=== PATIENT | male | born 1975 | race Caucasian/White ===

== ENCOUNTER → 2017-10-05 | Outpatient (CLI) | payer OTHER ==
[~2017-10-05] MED LIST: ADVAIR; ADVAIR INH; ALB0.5 INH; ALBU8.5H IH; BUPR-472 PO; DIA5 PO; ESOM40CA42 PO; KET10 PO; KETO-58 PO; LORA0.5T11 PO; PARO-242 PO; PRAM0.1225 PO; ST JOHNS WART; ST JOHNS WORT; [UNRECOGNIZED DRUG - CODE] PO
== END ==
LOC: LAB 15:56
PROVIDERS: ATTEND Emergency Medicine
DX: G25.81 Restless legs syndrome (principal)
CPT/HCPCS: 36415; 82607; 82746; 83540; 83550

== ENCOUNTER → 2017-10-12 | Outpatient (CLI) | payer OTHER | LOC: AUD 16:05 | PROVIDERS: ATTEND Emergency Medicine | DX: H91.90 Unspecified hearing loss, unspecified ear (principal) | CPT/HCPCS: 92557; 92570 ==

== ENCOUNTER 2018-03-21 10:41 | Emergency (ER) | payer OTHER ==
[~2018-03-21 10:41] MED LIST changes: +FLUT1DIS28 IH; +MONT10TA PO
[2018-03-21] MEDS ORDERED: [UNRECOGNIZED DRUG - CODE] PO (10:50)
[2018-03-21 11:12] LABS: PLATELET COUNT, AUTOMATED 271 K/uL (150-450)
--- NOTE | 2018-03-21 11:14 | ER Report ---
History and Physical Time Seen By MD: 10:50 Hx. of Stated Complaint: WAS PLAYING COMP GAME, FELT A WEIRD "RUN" WITH HIS HEART. HAS A SQUEAZING CHEST PRESSURE. TOOK 325 ASA AT HOME HPI/ROS CHIEF COMPLAINT: chest pain HISTORY OF PRESENT ILLNESS: Patient was sitting at a table at approximately 950 this morning when he developed symptoms of palpitations and mild central chest pressure that radiates up to both sides of his neck. Symptoms have been constant for one hour though gradually improving. He no longer has palpitations but has mild chest pressure. Patient took 325 mg aspirin without significant relief. Patient does note that when he was walking around symptoms seem to be slightly worse. Patient has never had similar symptoms in past. Patient does not normally get pain or shortness of breath with exertion. Patient woke up this morning asymptomatic. He has had no change in medications, lifestyle, diet. He has had no recent travel, has no family history of DVT or PE, no family history of ID at a young age. Patient denies dyspnea, swelling in legs, abdominal pain, nausea, vomiting or other review of systems. REVIEW OF SYSTEMS: Constitutional: No fever, no chills. Eyes: No discharge. ENT: No sore throat. Cardiovascular: above Respiratory: No cough, no shortness of breath. Gastrointestinal: No abdominal pain, no vomiting. Genitourinary: No hematuria. Musculoskeletal: No back pain. Skin: No rashes. Neurological: No headache. Remainder of the 14 system rev: Yes Allergies: Coded Allergies: latex (Verified Allergy, Intermediate, 03/21/18) Home Meds Active Scripts Montelukast Sodium (SINGULAIR) 10 Mg Tablet, 1 TAB PO QDAY, #90 TAB 3 Refills Prov:AFRICA ANTHONY MD 03/02/18 Fluticasone/Salmeterol (ADVAIR 250-50 DISKUS) 1 Each Disk.w.dev, 1 EACH IH BID, #1 INHALER 11 Refills Prov:AFRICA ANTHONY MD 03/02/18 Bupropion Hcl (WELLBUTRIN XL) 150 Mg Tab.er.24h, 150 MG PO QDAY, #90 TAB 1 Refill Prov:AFRICA ANTHONY MD 01/29/18 Albuterol Sulfate 90 Mcg/Act (PROAIR HFA 90 MCG/ACT) 8.5 Gm Hfa.aer.ad, 2 PUFF IH Q4-6H, #1 INHALER 11 Refills Prov:AFRICA ANTHONY MD 10/05/17 Paroxetine Hcl (PAXIL) 10 Mg Tablet, 1 TAB PO QAM, #90 TAB 3 Refills Prov:AFRICA ANTHONY MD 07/07/17 Pramipexole Di-Hcl (MIRAPEX) 0.125 Mg Tablet, 0.125 MG PO QHS, #90 TAB 4 Refills Prov:AFRICA ANTHONY MD 06/09/17 Reported Medications Arginine Hcl (L-ARGININE) 1,000 Mg Tablet, 1000 MG PO 03/21/18 Discontinued Scripts Esomeprazole Magnesium (NEXIUM) 40 Mg Capsule.dr, 1 CAP PO QDAY, #90 CAP 4 Refills Prov:AFRICA ANTHONY MD 06/02/17 Reviewed Nurses Notes: Yes Hx Smoking: No Smoking Status: Never Smoker Hx Substance Use Disorder: No Hx Alcohol Use: Yes Constitutional Vital Sign - Last 24 Hours 03/21/18 03/21/18 03/21/18 03/21/18 10:41 10:44 10:45 10:56 Temp 97.7 Pulse ??? 84 96 Resp 14 14 B/P (MAP) 120/75 120/75 (90) Pulse Ox 95 95 O2 Delivery Room Air 03/21/18 03/21/18 03/21/18 03/21/18 11:00 11:11 11:16 11:30 Pulse 88 81 Resp 23 17 B/P (MAP) 117/83 (94) 121/81 (94) Pulse Ox 91 92 03/21/18 03/21/18 03/21/18 03/21/18 11:31 11:45 11:46 11:48 Pulse 84 81 Resp 11 12 B/P (MAP) 115/82 (93) Pulse Ox 90 96 O2 Flow Rate 2.0 03/21/18 03/21/18 03/21/18 03/21/18 12:00 12:01 12:15 12:16 Pulse 81 82 Resp 13 10 B/P (MAP) 114/81 (92) 121/69 (86) Pulse Ox 97 96 03/21/18 03/21/18 03/21/18 03/21/18 12:30 12:31 12:36 12:45 Pulse 80 82 Resp 0 27 B/P (MAP) 120/76 (91) 128/84 (99) Pulse Ox 94 94 03/21/18 03/21/18 03/21/18 03/21/18 12:51 13:00 13:06 13:15 Pulse 85 83 Resp 33 11 B/P (MAP) 112/79 (90) 106/75 (85) Pulse Ox 94 92 03/21/18 03/21/18 03/21/18 03/21/18 13:21 13:26 13:30 13:41 Pulse 86 82 81 Resp 26 29 21 B/P (MAP) 116/81 (93) Pulse Ox 95 93 93 03/21/18 13:45 B/P (MAP) 116/83 (94) Physical Exam General Appearance: [The patient is alert, has no immediate need for airway protection and no signs of toxicity.] [ ] Eyes: Pupils equal and round no pallor or injection. ENT, Mouth: Mucous membranes are moist. Respiratory: There are no retractions, lungs are clear to auscultation. Cardiovascular: Regular rate and rhythm. no m/r/g Gastrointestinal: Abdomen is soft and non tender, no masses, bowel sounds normal. Neurological: alert, oriented Skin: Warm and dry, no rashes. Musculoskeletal: Neck is supple non tender. Extremities are nontender, nonswollen and have full range of motion. DIFFERENTIAL DIAGNOSIS: After history and physical exam differential diagnosis was considered for chest pain including but not limited to myocardial ischemia, pericarditis pulmonary embolus, chest wall pain, pleural inflammation and pulmonary infectious causes. Medical Decision Making Data Points Result Diagram: 03/21/18 1048 03/21/18 1048 Laboratory Hematology Test 03/21/18 10:48 03/21/18 13:15 Red Blood Count 5.47 M/uL (4.00-5.60) Mean Corpuscular Volume 90.9 fL (80.0-96.0) Mean Corpuscular Hemoglobin 31.6 pg (26.0-33.0) Mean Corpuscular Hemoglobin Concent 34.7 g/dL (32.0-36.0) Red Cell Distribution Width 12.5 % (11.5-14.5) Mean Platelet Volume 9.0 fL (7.2-11.1) Neutrophils (%) (Auto) 54.0 % (39.4-72.5) Lymphocytes (%) (Auto) 31.2 % (17.6-49.6) Monocytes (%) (Auto) 11.1 % (4.1-12.4) Eosinophils (%) (Auto) 3.2 % (0.4-6.7) Basophils (%) (Auto) 0.5 % (0.3-1.4) Nucleated RBC Relative Count (auto) 0.2 /100WBC Neutrophils # (Auto) 3.1 K/uL (2.0-7.4) Lymphocytes # (Auto) 1.8 K/uL (1.3-3.6) Monocytes # (Auto) 0.6 K/uL (0.3-1.0) Eosinophils # (Auto) 0.2 K/uL (0.0-0.5) Basophils # (Auto) 0.0 K/uL (0.0-0.1) Nucleated RBC Absolute Count (auto) 0.01 K/uL D-Dimer Quantitative (PE/DVT) < 0.27 ug/ml (0-0.50) Sodium Level 141 mmol/L (137-145) Potassium Level 3.9 mmol/L (3.5-5.0) Chloride Level 103 mmol/L (98-107) Carbon Dioxide Level 25 mmol/L (22-30) Blood Urea Nitrogen 14 mg/dl (9-21) Creatinine 1.00 mg/dl (0.66-1.25) Glomerular Filtration Rate Calc > 60.0 Random Glucose 107 mg/dl (75-110) Calcium Level 8.8 mg/dl (8.4-10.2) Total Bilirubin 0.6 mg/dl (0.2-1.3) Aspartate Amino Transf (AST/SGOT) 25 U/L (0-35) Alanine Aminotransferase (ALT/SGPT) 26 U/L (0-56) Alkaline Phosphatase 79 U/L (0-126) Total Protein 7.4 g/dl (6.3-8.2) Albumin 4.3 g/dl (3.5-5.0) Lipase 88 U/L (23-300) Troponin I < 0.012 ng/ml Chemistry Test 03/21/18 10:48 03/21/18 13:15 White Blood Count 5.8 k/uL (4.5-11.0) Red Blood Count 5.47 M/uL (4.00-5.60) Hemoglobin 17.3 g/dL (14.0-18.0) Hematocrit 49.7 % (42.0-52.0) Mean Corpuscular Volume 90.9 fL (80.0-96.0) Mean Corpuscular Hemoglobin 31.6 pg (26.0-33.0) Mean Corpuscular Hemoglobin Concent 34.7 g/dL (32.0-36.0) Red Cell Distribution Width 12.5 % (11.5-14.5) Platelet Count 271 K/uL (150-450) Mean Platelet Volume 9.0 fL (7.2-11.1) Neutrophils (%) (Auto) 54.0 % (39.4-72.5) Lymphocytes (%) (Auto) 31.2 % (17.6-49.6) Monocytes (%) (Auto) 11.1 % (4.1-12.4) Eosinophils (%) (Auto) 3.2 % (0.4-6.7) Basophils (%) (Auto) 0.5 % (0.3-1.4) Nucleated RBC Relative Count (auto) 0.2 /100WBC Neutrophils # (Auto) 3.1 K/uL (2.0-7.4) Lymphocytes # (Auto) 1.8 K/uL (1.3-3.6) Monocytes # (Auto) 0.6 K/uL (0.3-1.0) Eosinophils # (Auto) 0.2 K/uL (0.0-0.5) Basophils # (Auto) 0.0 K/uL (0.0-0.1) Nucleated RBC Absolute Count (auto) 0.01 K/uL D-Dimer Quantitative (PE/DVT) < 0.27 ug/ml (0-0.50) Glomerular Filtration Rate Calc > 60.0 Calcium Level 8.8 mg/dl (8.4-10.2) Total Bilirubin 0.6 mg/dl (0.2-1.3) Aspartate Amino Transf (AST/SGOT) 25 U/L (0-35) Alanine Aminotransferase (ALT/SGPT) 26 U/L (0-56) Alkaline Phosphatase 79 U/L (0-126) Total Protein 7.4 g/dl (6.3-8.2) Albumin 4.3 g/dl (3.5-5.0) Lipase 88 U/L (23-300) Troponin I < 0.012 ng/ml Coagulation Test 03/21/18 10:48 D-Dimer Quantitative (PE/DVT) < 0.27 ug/ml EKG/Imaging EKG Interpretation 12 lead EKG: Rhythm: Normal sinus rhythm Hammond: Normal QRS: Normal ST segments: Normal Monitor Interpretation: Normal Sinus Rhythm Imaging X-ray: chest was obtained. I viewed the images myself on the PACS system. My i nterpretation of the images is: NACPD. The radiologist interpretation had no clinically significant variation from this interpretation. ED Course/Re-evaluation ED Course Patient presents with chest pressure and palpitations that improved throughout ED stay. Patient has had no prior similar symptoms. Considered emergent causes for cardiopulmonary disease. EKG 2 is normal, troponin is negative 2. Patient has heart score less than 4 and is reasonable for discharge with outpatient follow-up. Patient instructed to call his primary doctor tomorrow to schedule stress test. Patient has negative PERC score. Very low likelihood of other emergent disease. Patient comfortable on discharge and understands strict return precautions. Decision to Disposition Date: Mar 21, 2018 Decision to Disposition Time: 14:03 Depart Departure Latest Vital Signs Vital Signs Date Time Temp Pulse Resp B/P (MAP) Pulse Ox O2 Delivery O2 Flow Rate FiO2 03/21/18 13:45 116/83 (94) 03/21/18 13:41 81 21 93 03/21/18 11:48 2.0 03/21/18 10:44 97.7 Room Air Impression: Primary Impression: Chest pressure Condition: Improved Disposition: HOME OR SELF-CARE Referrals: AFRICA ANTHONY MD (PCP) 2 Days for scheduling of stress test Patient Instructions: Chest Pain (ED) MO DRAKE MD Mar 21, 2018 11:14
--- NOTE | 2018-03-21 11:25 | RADIOLOGY IMAGING REPORT ---
FACILITY: [facility] - [place] PATIENT NAME: Seth Ghosh : 1975 MR: [id number] V: [id number] EXAM DATE: ORDERING PHYSICIAN: MO DRAKE TECHNOLOGIST: Location: [facility] - [place] Patient: Seth Ghosh : 1975 Visit/Account:[id number] Date of Sevice: 03/21/2018 CHEST PA AND LAT COMPARISONS: None. ADDITIONAL PERTINENT HISTORY: Chest pain FINDINGS: Cardiomediastinal silhouette: Negative. Pulmonary vasculature: Negative. Lung dinero: Negative. Pleural spaces: Negative. Osseous structures: Minimal spondylitic change involving the thoracic spine. Surrounding soft tissues: Negative. IMPRESSION: No evidence of acute cardiopulmonary disease. Report Dictated By: Alexander Hoffman MD at 03/21/2018 11:21 AM Report E-Signed By: Alexander Hoffman MD at 03/21/2018 11:22 AM WSN:[id number]
[2018-03-21 14:00] VITALS: BP 107/72
--- NOTE | 2018-03-21 17:41 | EKG ---
FACILITY: [facility] [place] PATIENT NAME: JAS HOANG : [id number] MR: [id number] V: [id number] EXAM DATE: ORDERING PHYSICIAN: MO DRAKE TECHNOLOGIST: Test Reason : CHEST PAIN, REPEAT Blood Pressure : / mmHG Vent. Rate : 077 BPM Atrial Rate : 077 BPM P-R Int : 150 ms QRS Dur : 084 ms QT Int : 374 ms P-R-T Axes : 032 052 050 degrees QTc Int : 423 ms Normal sinus rhythm Normal ECG When compared with ECG of 21-MAR-2018 10:50, No significant change was found Confirmed by REAL BLEVINS ([id number]) on 03/21/2018 6:15:42 PM Referred By: Confirmed By:REAL BLEVINS
--- NOTE | 2018-03-21 17:47 | EKG ---
FACILITY: [facility] PATIENT NAME: JAS HOANG : [id number] MR: [id number] V: [id number] EXAM DATE: ORDERING PHYSICIAN: MO DRAKE TECHNOLOGIST: Test Reason : Blood Pressure : / mmHG Vent. Rate : 084 BPM Atrial Rate : 084 BPM P-R Int : 156 ms QRS Dur : 086 ms QT Int : 364 ms P-R-T Axes : 054 068 060 degrees QTc Int : 430 ms Normal sinus rhythm Normal ECG No previous ECGs available Confirmed by REAL BLEVINS ([id number]) on 03/21/2018 6:16:45 PM Referred By: Confirmed By:REAL BLEVINS
== END 2018-03-21 14:15 | disposition home or self-care (01) ==
LOC: ER 11:00
DX: R07.89 Other chest pain (principal)
CPT/HCPCS: 71046; 82040; 82247; 82310; 82374; 82435; 82565; 82947; 83690; 84075; 84132; 84155; 84295; 84450; 84460; 84484; 84520; 85025; 85379; 93005; 99284

== ENCOUNTER → 2018-03-30 | Outpatient (CLI) | payer OTHER ==
--- NOTE | 2018-04-01 10:02 | RT HOLTER TEST ---
FACILITY: [facility] - [place] PATIENT NAME: JAS HOANG : [id number] MR: [id number] V: [id number] EXAM DATE: ORDERING PHYSICIAN: AFRICA ANTHONY TECHNOLOGIST: Alysha Hook-up date: 2018-03-30 16:35:00 Duration: 24:00:00 Test Indications: CHEST PRESSURE Medications: ADVAIR PAXIL PROAIR SINGULAIR WELLBUTRIN CHECK PT. LIST 158951 QRS complexes * Ventricular ectopics which represent % of total QRS comp. 1 Supraventricular ectopics which represent <1 % of total QRS comp. * Paced QRS complexes which represent % of total QRS comp. VENTRICULAR ECTOPY * Isolated * Bigeminal Cycles * Couplets * Runs * Beats in Runs * Beats LONGEST at * BPM at :: -- * Beats FASTEST at * BPM at :: -- SUPRAVENTRICULAR ECTOPY 1 Isolated 0 Couplets 0 Runs 0 Beats in Runs * Beats LONGEST at * BPM at :: -- * Beats FASTEST at * BPM at :: -- HEART RATES 54 MIN at 02:21:21 2018-03-31 88 AVG 135 MAX at 14:24:45 2018-03-31 LONGEST RR 1.168 secs at 05:12:08 2018-03-31 S-T LEVELS Channel 1 -12.800 mm MIN at 16:35:00 2018-03-30.800 mm MAX at 16:35:00 2018-03-30 Channel 2 -12.800 mm MIN at 16:35:00 2018-03-30.800 mm MAX at 16:35:00 2018-03-30 Channel 3 -12.800 mm MIN at 16:35:00 2018-03-30.800 mm MAX at 16:35:00 2018-03-30 Confirmed by AFRICA ANTHONY ([id number]) on 04/01/2018 10:01:51 AM Referred By: Overread By: AFRICA ANTHONY
== END ==
LOC: RESP 16:27
PROVIDERS: ATTEND Emergency Medicine
DX: R00.2 Palpitations (principal)
CPT/HCPCS: 93225; 93226

== ENCOUNTER → 2018-04-13 | Outpatient (CLI) | payer OTHER ==
--- NOTE | 2018-04-13 15:52 | RADIOLOGY IMAGING REPORT ---
FACILITY: [facility] - [place] PATIENT NAME: Seth Ghosh : 1975 MR: [id number] V: [id number] EXAM DATE: [id number] ORDERING PHYSICIAN: AFRICA ANTHONY TECHNOLOGIST: Location[place] [facility] [place] Patient: Seth Ghosh : 1975 Visit/Account:[id number] Date of Sevice: 04/13/2018 EXERCISE MYOCARDIAL PERFUSION IMAGING Single Isotope SPECT Imaging with Exercise and Gated SPECT Imaging DATE OF EXAMINATION: April 13, 2018 REQUESTING PHYSICIAN: GABRIELLE INDICATION: Chest pain PROCEDURE: After informed consent the patient received an intravenous injection of Tc-99m sestamibi followed at the appropriate time interval by rest imaging. The patient then exercised according to the standard Addi protocol for 12 minutes achieving 13 METS. Resting heart rate was 66 bpm with a p eak heart rate of 166 bpm which is 93 % of maximal predicted heart rate for age. Blood pressure at rest was 102/68; blood pressure during exercise was 157/75. There was no chest pain during exercise. Exercise was discontinued because of fatigue. Baseline EKG demonstrates no. There were no EKG dorita nges of ischemia at peak exercise. Approximately one minute and 30 seconds prior to the termination of exercise, the patient received an intravenous injection of Tc-99m sestamibi followed by stress delia ging. DOSE of Tc-99m sestamibi: REST: 12.1 STRESS: 30.4 RAW DATA: Examination of the summed raw data revealed a excellent quality study. MYOCARDIAL PERFUSION: The tomographic images demonstrate normal myocardial perfusion without evidenc e of myocardial ischemia or infarct GATED IMAGES: The gated images demonstrate normal LV systolic performance and wall motion with LVEF 75%. IMPRESSION: 1. Excellent exercise tolerance without chest pain or ischemic EKG changes noted 2. Normal myocardial perfusion study without evidence of myocardial ischemia or infarct 3. Normal LV systolic performance and wall motion with LVEF 75% Report Dictated By: Timothy Villeda at 04/13/2018 3:40 PM Report E-Signed By: Timothy Villeda at 04/13/2018 3:47 PM WSN:[id number]
--- NOTE | 2018-04-14 10:46 | RT STRESS TEST REPORT ---
FACILITY: [facility] - [place] PATIENT NAME: JAS HOANG : [id number] MR: [id number] V: [id number] EXAM DATE: ORDERING PHYSICIAN: AFRICA ANTHONY TECHNOLOGIST: Zachary Acquisition Time: 2018-04-13 09:33:46 Total Exercise Time: 00:11:58 Test Indications: Chest Discomfort Medications: see nuc med sheet Protocol: JOSE 2 Max HR: 166 BPM 93% of Pred: 177 BPM Max BP: 157/075 mmHG Max Work Load: 13.7 METS Excellent exercise tolerance rate related ST changes Impression: normal stress test with no EKG changes or symptoms suggestive of ischemia nuclear medicine report to follow seperately Confirmed by CELINE JEAN-BAPTISTE ([id number]) on 04/14/2018 10:46:19 AM Referred By: AFRICA ANTHONY Overread By: CELINE JEA-NBAPTISTE
== END ==
LOC: NUC 00:25
PROVIDERS: ATTEND Emergency Medicine
DX: R07.89 Other chest pain (principal)
CPT/HCPCS: 78452; 93017; A9500

== ENCOUNTER → 2018-11-02 | Outpatient (REF) ==
[~2018-11-02] MED LIST changes: +PNEI IM
[2018-11-02 09:07] LABS: LDL CHOLESTEROL 67 mg/dl
== END ==
DX: Z02.9 Encounter for administrative examinations, unspecified (principal)

== ENCOUNTER → 2018-11-11 | Outpatient (CLI) | payer OTHER | LOC: LAB 08:26 | PROVIDERS: ATTEND Surgery | DX: D22.5 Melanocytic nevi of trunk (principal) | CPT/HCPCS: 88305 ==